=== PATIENT | male | born 1995 | race Caucasian/White ===

== ENCOUNTER → 2016-04-09 | Outpatient (CLI) | payer BC ==
[~2016-04-09] MED LIST: ALBUAER19 INH; FLNIN NAE; MULTTAB58 PO
[2016-04-09 18:36] LABS: BASO % 0.4 %; BASO ABS # 0.03 K/uL (0-0.2); COMPLETE YES; EOS % 1.5 %; HEMATOCRIT 44.7 % (42-52); IG% 0.3 %; LYMPH ABS # 2.88 K/uL (1.2-3.4); MEAN CELL VOLUME 86.5 fL (80-100); MEAN CORPUSCULAR HEMOGLOBIN 30.2 pg (25-34); MEAN CORPUSCULAR HGB CONC 34.9 g/dl (32-36); MONO % 10.7 %; NEUT % 49.1 %; PLATELET COUNT 236 K/uL (130-400); RED BLOOD COUNT 5.17 M/uL (4.7-6.1); WHITE BLOOD COUNT 7.57 K/uL (4.8-10.8)
[2016-04-11 10:19] LABS: QUANTIF TB AG-NIL 0.02 IU/ML; QUANTIFERON NIL 0.04 IU/ML
== END | disposition home or self-care (01) ==
LOC: C.LAB 17:23
PROVIDERS: ATTEND Family Medicine
DX: R59.9 Enlarged lymph nodes, unspecified (principal)

== ENCOUNTER 2016-04-13 23:48 | Emergency (ER) | payer BC ==
[~2016-04-13] VITALS: Ht 185.4 cm; Wt 93.5 kg
[2016-04-14 00:06] VITALS: TEMP 37.1; Ht 185.4 cm; Wt 93.5 kg
[2016-04-14] MEDS ORDERED: OPTIRAY 320 IV PRN (00:15)
[2016-04-14 00:31] LABS: ISTAT CREATININE 0.9 mg/dl; ISTAT IONIZED CALCIUM 1.17 mmol/l
--- NOTE | 2016-04-14 01:35 | EMERGENCY ROOM VISIT NOTE ---
History Report prepared by Imelda: Shefali Yusuf Under the Supervision of: Dr. Rubio Cespedes D.O. First contact with patient: 00:07 Chief Complaint: ABDOMINAL PAIN Stated Complaint: ABD PAIN Nursing Triage Summary: pt dx a couple days ago with mono, pt now developed left upper abd pain History of Present Illness The patient is a 20 year old male who presents to the Emergency Room via family with complaints of worsening left sided abdominal pain with onset a few days ago. He rates his pain as a 5/10. Four days ago, the patient was diagnosed with mononucleosis. In the past several days, the patient developed left upper quadrant abdominal pain. He denies sorethroat. Source of History: patient Onset: a few days ago Position: abdomen Symptom Intensity: 5/10 Quality: other (abdominal pain) Timing: worsening Associated Symptoms: No sorethroat Review of Systems See HPI for pertinent positives & negatives. A total of 10 systems reviewed and were otherwise negative. Past Medical & Surgical Medical Problems: (1) Mononucleosis Family History Heart disease Hypertension Social History Smoking Status: Never Smoker Alcohol Use: none Drug Use: none Marital Status: single Housing Status: lives with family Occupation Status: student Current/Historical Medications No Active Prescriptions or Reported Meds Allergies Coded Allergies: Cefdinir (Verified Allergy, Unknown, hives, 04/14/16) Cefuroxime (Verified Allergy, Unknown, hives, 04/14/16) Physical Exam Vital Signs Date Time Temp Pulse Resp B/P Pulse Ox O2 Delivery O2 Flow Rate FiO2 04/14/16 00:41 92 18 160/85 98 Room Air 04/14/16 00:06 37.1 100 18 149/83 95 Room Air Physical Exam CONSTITUTIONAL/VITAL SIGNS: Reviewed / noted above. GENERAL: Non-toxic in appearance. INTEGUMENTARY: Warm, dry, and [place]. HEAD: Normocephalic. EYES: without scleral icterus or trauma. ENT/OROPHARYNX: clear and moist. LYMPHADENOPATHY/NECK: Is supple without lymphadenopathy or meningismus. RESPIRATORY: Lungs clear and equal. CARDIOVASCULAR: Regular rate and rhythm. GI/ABDOMEN: Soft and nontender. No organomegaly or pulsatile mass. No rebound or guarding. Normal bowel sounds. EXTREMITIES: Warm and well perfused. BACK: No CVA tenderness. NEUROLOGICAL: Intact without focal deficits. PSYCHIATRIC: normal affect. MUSCULOSKELETAL: Normally developed with good muscle tone. Medical Decision & Procedures ER Provider Diagnostic Interpretation: CT results as stated below per my review and radiologist interpretation: CT Abdomen and Pelvis: Mild splenomegaly. The appendix is normal in size without evidence of surrounding inflammatory change. No free fluid. No free air. The bowel is normal in caliber. The liver, pancreas, gallbladder and kidneys are unremarkable. Radiologist: Stephan Nolan MD. Laboratory Results Test 04/14/16 00:15 Bedside Hemoglobin 16.0 g/dl (14.0-18.0) Bedside Hematocrit 47 % (42-52) Bedside Sodium 142 mEq/L (135-144) Bedside Potassium 3.9 mEq/L (3.3-5.0) Bedside Chloride 100 mEq/L (101-112) Bedside Total CO2 27 mEq/l (24-31) Anion Gap 19.0 mmol/L (16-25) Bedside Blood Urea Nitrogen 16 mg/dl (7-18) Bedside Creatinine 0.9 mg/dl Bedside Glucose (other) 99 mg/dl (70-99) Bedside Ionized Calcium (Sinan) 1.17 mmol/l Laboratory results as stated above per my review. ED Course 0009: Previous medical records were reviewed. The patient was evaluated in room B10. A complete history and physical examination was performed. 0145: On reevaluation, the patient is doing well. I discussed the results and findings with the patient. He verbalized agreement of the treatment plan. The patient was discharged home. Medical Decision The patient is a 20 year old male who presents to the ED with complaints of abdominal pain. The patient states that he was diagnosed with mononucleosis a few days ago. He has been experiencing some left upper quadrant discomfort. He was concerned about this and came to the ED for evaluation tonight. His exam reveals no significant abnormalities. CT scan of the abdomen and pelvis did not show any evidence of acute process. He has mild splenomegaly. The patient was told the results. He is felt to be stable for discharge. Chemistry panel was unremarkable. Differential considered: pancreatitis, hepatitis, or acute cholecystitis, AAA, UTI, pyelonephritis, kidney stones, appendicitis, diverticulitis, shingles, bowel obstruction mesenteric ischemia, intussusception,hernia, testicular torsion. Impression Primary Impression: Mononucleosis Additional Impression: Left upper quadrant pain Scribe Attestation The scribe's documentation has been prepared under my direction and personally reviewed by me in its entirety. I confirm that the note above accurately reflects all work, treatment, procedures, and medical decision making performed by me. Departure Information Dispostion Home / Self-Care Prescriptions No Active Prescriptions or Reported Meds Referrals Natalie Murillo D.O. (PCP) Patient Instructions My [facility] Additional Instructions Follow-up with your doctor for further care and evaluation in 1-2 days. Return to the emergency department for worsening or new symptoms or any concerns. You have been examined and treated today on an emergency basis only. This is not a substitute for, or an effort to provide, complete comprehensive medical care. It is impossible to recognize and treat all injuries or illnesses in a single emergency department visit. It is therefore important that you follow up closely with your doctor. Call as soon as possible for an appointment. Problem Qualifiers
[2016-04-14 01:52] VITALS: BP 141/78; PULSE 85; O2SAT 98
--- NOTE | 2016-04-14 08:03 | DIAGNOSTIC IMAGING REPORT ---
CT OF THE ABDOMEN AND PELVIS WITH CONTRAST CLINICAL HISTORY: Left upper quadrant pain. History of mononucleosis COMPARISON STUDY: Right upper quadrant ultrasound March 11, 2012. TECHNIQUE: Following IV administration of 116 mL of Optiray-320, axial images of the abdomen and pelvis were obtained from the lung bases to the proximal femurs. Images were reviewed in the axial, sagittal, and coronal planes. IV contrast was administered without complication. CT DOSE: 372.94 mGy.cm FINDINGS: Lung bases are clear. Mild splenomegaly is noted. No perisplenic fluid is present. No splenic lesion is identified. The liver, adrenal glands, kidneys and pancreas are normal. The caliber and wall thickness of small and large bowel are normal. There is no lymphadenopathy. Skeletal structures are remarkable. Appendix is normal. IMPRESSION: 1. Mild splenomegaly. No perisplenic fluid. 2. Otherwise, unremarkable CT of the abdomen and pelvis. Electronically signed by: Emerson Hampton M.D. 04/14/2016 8:01 AM Dictated Date/Time: 04/14/2016 7:58 AM
== END 2016-04-14 01:53 | disposition home or self-care (01) ==
LOC: C.EDB 23:49
DX: B27.90 Infectious mononucleosis, unspecified without complication (principal); R10.12 Left upper quadrant pain

== ENCOUNTER → 2016-04-23 | Outpatient (CLI) | payer BC ==
--- NOTE | 2016-04-23 14:40 | DIAGNOSTIC IMAGING REPORT ---
THYROID ULTRASOUND HISTORY: Clinically dose is. Lymphadenopathy. K[place], eval LYMPH NODES COMPARISON: None. FINDINGS: Bilateral cervical adenopathy. All nodes are well-defined. Maximum dimension of nodes in the left neck are 4 x 2.4 x 1.5 cm. On the right maximum dimension is 4.3 1.0 x 3.0 cm. IMPRESSION: Multiple nodes throughout the cervical chains bilaterally. Given the patient's history of mononucleosis, an appropriate approach would be to obtain a repeat ultrasound in appropriate time interval to confirm resolution. If these do not resolve, fine-needle aspiration could be considered. Electronically signed by: Liban Chavez M.D. 04/23/2016 2:38 PM Dictated Date/Time: 04/23/2016 2:36 PM
== END | disposition home or self-care (01) ==
LOC: C.ULTR 14:11
PROVIDERS: ATTEND Family Medicine
DX: B27.90 Infectious mononucleosis, unspecified without complication (principal)

== ENCOUNTER → 2016-05-11 | Outpatient (CLI) | payer BC ==
--- NOTE | 2016-05-11 13:16 | DIAGNOSTIC IMAGING REPORT ---
(SPLEEN) ABD LTD CLINICAL HISTORY: R10.12,R42,B27.89 lymphadenopathy. Splenomegaly. COMPARISON STUDY: CT scan dated 04/14/2016 FINDINGS: The spleen remains mildly enlarged measuring 13.4 cm. No focal splenic masses are visualized. A small splenule was visualized. IMPRESSION: Mild splenomegaly (13.4 cm). Electronically signed by: Rolnado Bruner M.D. 05/11/2016 1:14 PM Dictated Date/Time: 05/11/2016 1:12 PM
== END ==
LOC: C.ULTR 12:47
PROVIDERS: ATTEND Nurse Practitioner Family
DX: R10.12 Left upper quadrant pain (principal); R42 Dizziness and giddiness; B27.89 Other infectious mononucleosis with other complication; R16.1 Splenomegaly, not elsewhere classified

== ENCOUNTER → 2016-09-18 | Outpatient (CLI) | payer BC ==
--- NOTE | 2016-09-18 11:12 | DIAGNOSTIC IMAGING REPORT ---
ABDOMEN LIMITED (US) CLINICAL HISTORY: 21 years-old Male presenting with AB PAIN, ONGOING RUQ, history of splenomegaly and lymphadenopathy. TECHNIQUE: Grayscale and limited color Doppler ultrasound imaging of the left upper quadrant was obtained for a focused examination of the spleen. COMPARISON: 05/11/2016. FINDINGS: Normal echogenicity. The spleen is borderline enlarged, measuring 13.4 cm in maximal sagittal dimension. Previously the spleen measured 13.4 cm. Normal color Doppler perfusion of the parenchyma. No evidence of free fluid in the left upper quadrant. IMPRESSION: 1. Borderline mild splenomegaly, unchanged from prior. Electronically signed by: Enzo Rajan M.D. 09/18/2016 11:11 AM Dictated Date/Time: 09/18/2016 11:09 AM
== END | disposition home or self-care (01) ==
LOC: C.ULTRBC 10:49
PROVIDERS: ATTEND Family Medicine
DX: R10.9 Unspecified abdominal pain (principal)

== ENCOUNTER → 2016-10-01 | Outpatient (CLI) | payer BC ==
[~2016-10-01] MED LIST changes: -ALBUAER19 INH; -FLNIN NAE; -MULTTAB58 PO; +OPTIRAY 320 IV PRN
--- NOTE | 2016-10-01 17:40 | DIAGNOSTIC IMAGING REPORT ---
ABD/PELVIS IV AND ORAL CONT CLINICAL HISTORY: 21 years-old Male presenting with ABDOMINAL PAIN, LEFT, history of mononucleosis. TECHNIQUE: Multidetector CT of the abdomen and pelvis was performed after the administration of oral and intravenous contrast. IV contrast: 92 mL of Optiray 320. A dose lowering technique was used consistent with the principles of ALARA (as low as reasonably achievable). COMPARISON: 04/14/2016. CT DOSE (mGy.cm): The estimated cumulative dose is 554.96 mGy.cm. FINDINGS: Postpartum Nurse topogram: Unremarkable. Lung bases: Lung bases clear. No pericardial or pleural effusion. Liver: Normal morphology. Punctate hypodensity in the right hepatic lobe likely hepatic cyst or hamartoma but too small to characterize. Patent hepatic vasculature. Biliary: No intrahepatic or extrahepatic biliary ductal dilatation. Normal gallbladder. Pancreas: Normal. Spleen: Spleen is normal in size. Adrenal glands: Normal. Kidneys and ureters: No nephrolithiasis. No hydronephrosis. Gastrointestinal tract: Normal. No bowel obstruction. Peritoneal cavity: No free fluid or intraperitoneal gas. Bladder: Normal. Pelvic organs: Prostate and seminal vesicles normal. Vasculature: Aorta and IVC patent and normal in caliber. Lymph nodes: No enlarged lymph nodes in the abdomen or pelvis. Abdominal wall: Normal. Musculoskeletal: Normal. IMPRESSION: 1. Interval resolution of borderline splenomegaly. No acute intra-abdominal pathology. Electronically signed by: Enzo Rajan M.D. 10/01/2016 5:38 PM Dictated Date/Time: 10/01/2016 5:31 PM
== END | disposition home or self-care (01) ==
LOC: C.CTS 17:14
PROVIDERS: ATTEND Family Medicine
DX: R10.9 Unspecified abdominal pain (principal)